=== PATIENT | female | born 1960 | race African-American/Black ===

== ENCOUNTER 2019-11-03 07:43 | Outpatient (CLI) | payer MEDICAID | END 2019-11-03 23:59 | disposition home or self-care (01) | LOC: LAB 07:43 | PROVIDERS: ATTEND Specialist | DX: Z01.812 Encounter for preprocedural laboratory examination (principal); Z11.59 Encounter for screening for other viral diseases; M17.11 Unilateral primary osteoarthritis, right knee; M06.36 Rheumatoid nodule, knee ==

== ENCOUNTER 2019-11-10 05:36 | Inpatient (IN) | payer MEDICAID ==
[~2019-11-10] VITALS: Ht 149.9 cm; Wt 53.1 kg
--- NOTE | 2019-11-10 07:30 | NUR ---
MS/LIME MIXER TENDER NOTES Patient scheduled for total right knee arthroplasty with nodule excision at 0800. Received patient in bed, A&O x3, kept NPO for procedure, consents signed. Breathing even and non-labored on room air, no SOB noted. No cardiac distress noted. Complaints of 8/10 dull ache pain on the right knee, very swollen. Patient is hard stick, attempted to insert IV three times, surgical nurse Tam, states he'll let the anesthesiologist insert one for her. Sensation from all peripheral extremities intact. Patient has unsteady gait and ambulates with assist, instructed to use call light and call for help if in need of assistance getting up. Belongings list done and signed. Fall precautions maintained. Will continue with current medical management.
[2019-11-10] MEDS ORDERED: METH-406 PO (09:54)
[2019-11-10] MEDS ORDERED: OXYC15TA2 PO (09:54)
[2019-11-10] MEDS ORDERED: IBUP-1957 PO (09:54)
[2019-11-10] MEDS ORDERED: LISI-603 PO (09:54)
--- NOTE | 2019-11-10 10:00 | NUR ---
MS/GUN BARREL FINISHER NOTES Dr. Savage cancels surgery because of increased risk of infection on the right swollen knee, no new orders for medical management, but states to discharge patient to home and follow-up to visit him in the clinic. Patient left safely with along with belongings in a private car, remained stable. A&O x3, VSS, breathing even and non-labored on room air, no SOB noted. No cardiac distress noted. No skin photos and MRSA swab taken as patient refuses and insists on going home instead. No IV access noted. Sensation from all peripheral extremities intact. Instructed patient to see Dr. Savage for follow-up visit in his clinic within 1 week, patient verbalizes understanding.
== END 2019-11-10 10:20 | disposition home or self-care (01) | DRG 351 ==
LOC: DS 05:36 → MED 05:37
PROVIDERS: ADMIT Specialist; ATTEND Specialist
DX: M17.11 Unilateral primary osteoarthritis, right knee (principal); I10 Essential (primary) hypertension; M06.9 Rheumatoid arthritis, unspecified; Z53.09 Procedure and treatment not carried out because of other contraindication
CPT/HCPCS: 36415; 86850-TC; G0378